=== PATIENT | female | born 2000 | race Two or more races ===

== ENCOUNTER 2024-07-30 11:46 | Emergency (ER) | payer MEDICAID, SELFPAY ==
[2024-07-30 13:03] VITALS: BP 149/95; PULSE 73; RESP 18; TEMP 37; O2SAT 100; BMI 25.3
--- NOTE | 2024-07-30 13:26 | XR_ITS ---
Examination: PA lateral chest 2 views Technique: Upright PA lateral chest 2 views Exam date and time: July 30, 2024 1337 hrs. Comparison January 31, 2024 Indications: Chest pain today. Findings: Normal heart size. Lungs are clear. The osseous structures are intact. Impression: No active disease.
--- NOTE | 2024-07-30 13:26 | XR_ITS ---
Examination: Abdomen sonogram, Limited Date and time of exam: July 30, 2024 1438 hrs. Indications: Right flank pain beginning 2 years ago, worse today Technique: Real-time castro scale transabdominal sonographic images of the upper abdomen obtained. Findings: Multiple small gallstones Gallbladder wall 0.5 cm with possible edema Common bile duct 0.4 cm Pancreatic head 1.8 cm Liver 13.8 cm fatty infiltration Normal hepatopedal portal venous flow Patent IVC Impression: Acute calculus cholecystitis pattern Consider MRCP follow-up
--- NOTE | 2024-07-30 13:26 | EKG_ITS ---
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
--- NOTE | 2024-07-30 13:30 | PD.EDRME ---
Rapid Medical Screening Exam RME Arrival date/time: 07/30/24 11:46 Chief Complaint: Abdominal Pain Time Seen by Provider: 07/30/24 13:08 Vital signs: Vital Signs Temperature 98.6 F 07/30/24 13:03 Pulse Rate 73 07/30/24 13:03 Respiratory Rate 18 07/30/24 13:03 Blood Pressure 149/95 H 07/30/24 13:03 Pulse Oximetry (%) 100 07/30/24 13:03 Oxygen Delivery Method Room Air 07/30/24 13:03 RME Narrative: 24-year-old female sent to hospital from work after having a syncopal episode at work. States she felt sharp epigastric pain and passed out from the pain. It is not the first time it happened. Was diagnosed with gallstones a few years ago. States was done nothing about them since. Of note did have fever 2 days ago. does not know why the fever happened has not been feeling sick other than her stomach.
[2024-07-30] MEDS: KETOROLAC INJ 60 MG/2 ML VIAL 30 MG IM (13:49)
[2024-07-30 14:30] LABS: Basophils % (Auto) 1 % (0-2.5); Eosinophils # (Auto) 0.1 Thou/mm3 (0.0-0.5); Eosinophils % (Auto) 1 % (0-10); Hematocrit 35.2 % (36.0-46.0); Hemoglobin 11.5 g/dL (12.0-16.0); Immature Granulocytes % (Auto) 0 % (0-0); Immature Granulocytes Auto 0.01 Thou/mm3 (0.00-0.00); Lymphocytes # (Auto) 2.4 Thou/mm3 (1.0-4.8); Lymphocytes % (Auto) 28 % (10-50); Mean Corpuscular HGB Conc 32.7 g/dl (31.0-37.0); Mean Corpuscular Hemoglobin 26.1 pg (25.0-35.0); Mean Corpuscular Volume 80 fL (80-100); Monocytes # (Auto) 0.7 Thou/mm3 (0.0-0.8); Monocytes % (Auto) 7 % (0-12); Neutrophils # (Auto) 5.6 Thou/mm3 (1.8-7.7); Neutrophils % (Auto) 63 % (37-80); Nucleated Red Blood Cell % 0 /100 WBC (0); Platelet Count 235 Thou/mm3 (140-440); RDW Standard Deviation 44.1 fL (36.4-46.3); White Blood Count 8.8 Thou/mm3 (3.6-11.0)
[2024-07-30 14:37] LABS: HCG Qualitative,Urine Negative
[2024-07-30 14:44] LABS: Amphetamine/Methamp Scrn,U Negative (Negative); Barbiturate Screen,Urine Negative (Negative); Benzodiazepines Screen,Urine Negative (Negative); Benzoylecgonine Screen, Ur Negative (Negative); Fentanyl Screen,Urine Negative (Negative); Opiate Screen,Urine Negative (Negative); THC Screen,Urine Negative (Negative)
[2024-07-30 14:50] LABS: Albumin, Serum 4.7 gm/dL (3.5-5.0); Albumin/Globulin Ratio 1.3 (1.2-2.2); Alkaline Phosphatase 99 U/L (46-116); Anion Gap 10 (7-16); Aspartate Amino Transferase 15 U/L (0-34); BUN/Creatinine Ratio 20 Ratio (12-20); Bilirubin,Total 0.4 mg/dL (0.3-1.2); Blood Urea Nitrogen 14 mg/dL (9-23); Calcium 11.1 mg/dL (8.3-10.6); Calcium (Corrected) 11.1 mg/dL (8.5-10.1); Carbon Dioxide 24.3 mMol/L (20.0-31.0); Chloride 104 mMol/L (98-107); Creatinine (Component) 0.7 mg/dL (0.6-1.3); Estimated Creatinine Clearance 108.9 mL/min (>60); Globulin 3.5 gm/dL (2.3-3.5); Glucose 85 mg/dL (74-106); Lipase 44 U/L (12-53); Osmolality,Calculated 275 (275-295); Sodium 138 mMol/L (136-145); Total Protein 8.2 gm/dL (5.7-8.2); eGFR > 60 See Note
[2024-07-30 15:00] LABS: Alanine Aminotransferase 9 U/L (10-49)
[2024-07-30 17:13] VITALS: BP 135/87; PULSE 65; RESP 18; TEMP 36.6; O2SAT 97
--- NOTE | 2024-07-30 18:54 | PD.EDABDPN ---
ED Abdominal Pain RME/HPI General Chief Complaint: Abdominal Pain Stated complaint: ABD PAIN RADIATING TO BACK W/ NEAR SYNCOPE AT WORK Time seen by provider: 07/30/24 13:08 Arrival date/time: 07/30/24 11:46 RME / HPI RME / HPI narrative: 24-year-old female sent to hospital from work after having a syncopal episode at work. States she felt sharp epigastric pain and passed out from the pain. It is not the first time it happened. Was diagnosed with gallstones a few years ago. States was done nothing about them since. Of note did have fever 2 days ago. does not know why the fever happened has not been feeling sick other than her stomach. This section includes all my notes and documentations, including HPI, PE, and ED course. Shoaib Calhoun MD HPI: 24-year-old female sent to hospital from work after having a syncopal episode at work. States she felt sharp epigastric pain and passed out from the pain. It is not the first time it happened. Was diagnosed with gallstones a few years ago. States was done nothing about them since. Of note did have fever 2 days ago. does not know why the fever happened has not been feeling sick other than her stomach. ROS: All negative except as documented in HPI. Physical Exam: General: Alert and oriented. No acute distress when remaining still. Eyes: Conjunctivae and lids clear. ENT: No nasal congestion. Neck: Supple. Heart: RRR. Lungs: No respiratory distress. Good air movement. No rhonchi, wheezing, rales. Abdomen: Soft with epigastric and RUQ tenderness. Normal bowel sounds. No distension. No rebound or guarding. Back: No CVA tenderness. Skin: Warm and dry. Neuro: Alert and oriented X 3. I reviewed all diagnostic test results. My interpretation of the chest x-ray is no acute findings. My review of the gallbladder US report is cholelithiasis. Blood tests and urine tests unremarkable. At this point, diagnoses include cholelithiasis. Recommended more outpatient care, including elective surgery. Based on my best medical judgment, made decision no further evaluation or treatment indicated at this time. Patient understands and agrees to the discharge instructions customized and printed, see below. Discharge Instructions from Dr. Calhoun: 1. After evaluation, your symptoms are due to gallstone(s).? You need gallbladder to help digest fatty foods. 2. So to prevent future attacks, avoid all fatty and oily and greasy and buttery and dairy foods.? This usually means take out and fast food restaurants. 3. Zofran for nausea/vomiting.? Tylenol codeine for severe pain.??Add Augmentin to prevent infection. 4. See a private doctor for recheck and further care. Ask for help seeing a general surgeon to discuss elective surgery. 5. Seek immediate medical care with intolerable pain, fever, or with any concerns. Shoaib Calhoun MD Related Data Home Medications ?Medication ?Instructions ?Recorded ?Confirmed paroxetine HCl 20 mg tablet 20 mg PO QDAY 03/06/21 08/03/21 loratadine 10 mg tablet 10 mg PO QDAY 08/03/21 08/03/21 prednisone 20 mg tablet 20 mg PO QDAY 08/03/21 08/08/21 sertraline 25 mg tablet (Zoloft) 25 mg PO QDAY PRN Anxiety 08/03/21 08/03/21 Previous Rx's ?Medication ?Instructions ?Recorded hzhoryvttq-rtkryzgimqisz-axcewoqs 1 cap PO Q6H PRN headache #20 caps 01/23/22 50 mg-300 mg-40 mg capsule (Fioricet) imwytdhktp-wcpviyratdpag-gfmcbqzm 1 cap PO Q6H PRN headache #30 caps 01/23/22 50 mg-300 mg-40 mg capsule (Fioricet) ondansetron 4 mg disintegrating 4 mg PO Q6H PRN nausea and 01/23/22 tablet vomiting #10 tabs ondansetron 4 mg disintegrating 4 mg PO Q6H PRN nausea and 01/23/22 tablet vomiting #10 tabs acetaminophen 300 mg-codeine 30 mg 2 tab PO Q8H PRN pain #20 tabs 07/30/24 tablet amoxicillin 875 mg-potassium 1 tab PO BID 3 days #6 tabs 07/30/24 clavulanate 125 mg tablet ondansetron 4 mg disintegrating 4 mg PO TID PRN nausea and 07/30/24 tablet vomiting 30 days #10 tabs Allergies Allergy/AdvReac Type Severity Reaction Status Date / Time No Known Allergies Allergy Verified 07/30/24 11:49 Course Quality Measures none Orders Category Date Time Status Bedside COVID-19 Antigen Test NOW Care 07/30/24 13:31 Active Bedside Influenza A&B Antigen Test NOW Care 07/30/24 13:31 Completed EKG (ED ONLY) *Do not use* NOW Care 07/30/24 13:26 Completed EKG (ED Only) Stat Exams 07/30/24 13:26 Draft US gall bladder Stat Exams 07/30/24 13:26 Completed XR chest 2V Stat Exams 07/30/24 13:26 Completed CBC Stat Lab 07/30/24 14:15 Completed CMP [Comprehensive Metabolic Panel] Stat Lab 07/30/24 14:15 Completed Drug Screen,Urine Stat Lab 07/30/24 14:13 Completed HCG Qualitative,Urine Stat Lab 07/30/24 14:10 Completed Lipase Stat Lab 07/30/24 14:15 Completed Ketorolac Inj [Toradol Inj] Med 07/30/24 13:27 Discontinued 30 mg IM X1 ONE Vital Signs Vital signs: Vital Signs Temperature 98.6 F 07/30/24 13:03 Pulse Rate 73 07/30/24 13:03 Respiratory Rate 18 07/30/24 13:03 Blood Pressure 149/95 H 07/30/24 13:03 Pulse Oximetry (%) 100 07/30/24 13:03 Oxygen Delivery Method Room Air 07/30/24 13:03 Abdominal Pain MDM Patient data External records reviewed:: [facility] previous records Clinical information provided by:: patient Social determinants that could affect healthcare access:: none Patient has the following chronic illnesses:: Cholelithiasis and asthma How is presenting disease/condition affected by chronic disease/condition?: exacerbated by Evaluation data The following diagnostics were reviewed and interpreted by me:: lab results and radiology exam(s) Lab and/or radiology exams considered but not ordered:: None Interpretation Summary: Cholelithiasis Medications / Prescriptions Medications or Prescriptions considered but not ordered:: None Medication administrations:: Medication Administration History Discontinued Medications Ketorolac Tromethamine (Ketorolac Inj 60 Mg/2 Ml Vial) 30 mg IM X1 ONE Stop: 07/30/24 13:28 Last Admin: 07/30/24 13:49 Dose: 30 mg Documented By: ARMANDO Toradol Consultations Consultation(s) initiated? (list below): No Diagnosis Differential diagnosis abdominal pain: abdominal pain, acute appendicitis, calculus of kidney, constipation, diverticulitis, endometriosis, gastroenteritis, pancreatitis, small bowel obstruction and other (Biliary colic) Most likely diagnosis given after review of the tests above:: Cholelithiasis Admission Indicated Admission indicated?: not indicated Explain why admission is indicated or not indicated:: There was no indication for admission. Admission Request Was there a request for admission?: No Disposition Plan Disposition Plan: Discharge Discharge Attestation Discharge Attestation: The patient and all family members were given an opportunity to ask questions and understood the discharge instructions. Discharge instructions specifically effects, indications for sooner follow up or return to the emergency department, and the expected course of current diagnosis. Patient condition: Stable Discharge Plan Plan Patient Disposition: HOME (Self Care) Prescriptions/Referrals Prescriptions/Med Rec: New acetaminophen-codeine 300-30 mg tablet 2 tab PO Q8H MDD 6 PRN (Reason: pain) Qty: 20 0RF ondansetron 4 mg tablet,disintegrating 4 mg PO TID PRN (Reason: nausea and vomiting) 30 Days Qty: 10 0RF amoxicillin-pot clavulanate 875-125 mg tablet 1 tab PO BID 3 Days Qty: 6 0RF No Action paroxetine HCl 20 mg tablet 20 mg PO QDAY prednisone 20 mg Tablet 20 mg PO QDAY sertraline [Zoloft] 25 mg Tablet 25 mg PO QDAY PRN (Reason: Anxiety) loratadine 10 mg Tablet 10 mg PO QDAY hsmnsajsqh-uxowhrvnpeffp-wobv [Fioricet] 50-300-40 mg capsule 1 cap PO Q6H PRN (Reason: headache) Qty: 30 0RF ondansetron 4 mg tablet,disintegrating 4 mg PO Q6H PRN (Reason: nausea and vomiting) Qty: 10 0RF ondansetron 4 mg tablet,disintegrating 4 mg PO Q6H PRN (Reason: nausea and vomiting) Qty: 10 0RF hefaeozbbe-kqmiprvwgetjk-gywf [Fioricet] 50-300-40 mg capsule 1 cap PO Q6H PRN (Reason: headache) Qty: 20 0RF Referrals: No Primary/Family,Physician [Primary Care Provider] - In 1 week Problem List Clinical Impression: Gallstones Patient/Caregiver Discharge Instructions Discharge Activity: activity as tolerated Education Materials: ED Gallstones with Biliary Colic Additional Instructions: Discharge Instructions from Dr. Calhoun: 1. After evaluation, your symptoms are due to gallstone(s).? You need gallbladder to help digest fatty foods. 2. So to prevent future attacks, avoid all fatty and oily and greasy and buttery and dairy foods.? This usually means take out and fast food restaurants. 3. Zofran for nausea/vomiting.? Tylenol codeine for severe pain.??Add Augmentin to prevent infection. 4. See a private doctor on for recheck and further care. Ask for help seeing a general surgeon to discuss elective surgery. 5. Seek immediate medical care with intolerable pain, fever, or with any concerns. Print Language: Grenadian Stand Alone Forms: [employer] Award Info., Patient Portal Info Letter
== END 2024-07-30 19:12 | disposition home or self-care (01) ==
PROVIDERS: Physician Assistant; Emergency Provider Emergency Medicine
DX: K80.20 Calculus of gallbladder without cholecystitis without obstruction (principal); R07.9 Chest pain, unspecified
CPT/HCPCS: 36415; 71046; 76705; 80053; 80307; 81025; 83690; 85025; 87400; 87811; 93005; 96372; 99284; J1885

== ENCOUNTER 2024-10-28 00:10 | Inpatient (IN) | payer MEDICAID, SELFPAY ==
--- NOTE | 2024-10-28 | XR_ITS ---
MRI abdomen, without contrast. MRCP Date and time of exam: October 28, 2024, 0956 hrs. Indications: Vomiting abdominal pain 2 years worse today, gallbladder sonogram October 28, 2024 enlarged common bile duct 7 mm Technique: Multiple axial and coronal images of the abdomen have been obtained with the Siemens 1.5T MRI scanner. Images obtained included T1 weighted transverse images, T2-weighted transverse images, T2-weighted transverse images fat-suppressed, T2 weighted haste fat suppressed transverse images, T1 weighted images, in and out of phase images, T2-weighted coronal images, breath hold, T2 weighted haze coronal images as well as T2 weighted coronal thick slab images, MRCP. Findings: No focal liver lesions Contracted gallbladder with gallstones Minimal edema surrounding the gallbladder Axial image 18 is suspicious for 3 mm stone in the distal common bile duct No peripancreatic edema No hydronephrosis No ascites Impression: Cholelithiasis, minimal edema gallbladder wall, clinical correlation advised Suspicious for 3 mm stone in the distal common bile duct, recommend ERCP follow-up
[2024-10-28 00:10] VITALS: BMI 25.4
--- NOTE | 2024-10-28 00:21 | EDNOTE_ITS ---
ED Abdominal Pain RME/HPI General Chief Complaint: Abdominal Pain Stated complaint: RUQ PAIN Time seen by provider: 10/28/24 00:28 Arrival date/time: 10/28/24 00:10 RME / HPI RME / HPI narrative: This section includes all my notes and documentations, including HPI, PE, and ED course. Shoaib Calhoun MD HPI: 24yo female with history of gallstones here with severe epigastric and RUQ pain for over a month, severe in the past couple days. With nausea and vomiting and anorexia. No fever, UTI symptoms. Requests removal of her gallbladder. No other complaints. ROS: All negative except as documented in HPI. Physical Exam: General: Alert and oriented. In severe pain. Eyes: Conjunctivae and lids clear. ENT: No nasal congestion. Neck: Supple. Heart: RRR. Lungs: No respiratory distress. Good air movement. No rhonchi, wheezing, rales. Abdomen: Soft with severe epigastric and RUQ tenderness. Decreased bowel sounds. No distension. No rebound or guarding. Back: No CVA tenderness. Skin: Warm and dry. Neuro: Alert and oriented X 3. I reviewed all diagnostic test results. My review of the gallbladder US report is cholelithiasis. Blood tests remarkable for Potassium 3.1. At this point, diagnoses include cholecystitis and intractable pain and vomiting. Treatment here included IV fluid, Toradol, Morphine, Zofran, and Zosyn. No significant improvement noted. I discussed the case with our general surgeon, Dr. Hernandez. About the presentation and exam and diagnostics and treatments here. And need of further care in the hospital. Will accept the patient. Shoaib Calhoun MD Related Data Home Medications ?Medication ?Instructions ?Recorded ?Confirmed paroxetine HCl 20 mg tablet 20 mg PO QDAY 03/06/2101/16 loratadine 10 mg tablet 10 mg PO QDAY 08/03/2108/03 prednisone 20 mg tablet 20 mg PO QDAY 08/03/2108/08 sertraline 25 mg tablet (Zoloft) 25 mg PO QDAY PRN Anx iety 08/03/21 08/03/21 Previous Rx's ?Medication ?Instructions ?Recorded wlcsurohpr-szkpozofvtjtj-bsoyzxwa 1 cap PO Q6H PRN axel meneseshe #20 caps 09/29/22 50 mg-300 mg-40 mg capsule (Fioricet) bfxqnxmawm-incxeftylpgfy-msnggiok 1 cap PO Q6H PRN hea dache #30 caps 01/23/22 50 mg-300 mg-40 mg capsule (Fioricet) ondansetron 4 mg disintegrating 4 mg PO Q6H PRN nausea and 01/23/22 tablet vomiting #10 tabs ondansetron 4 mg disintegrating 4 mg PO Q6H PRN nausea and 01/23/22 tablet vomiting #10 tabs acetaminophen 300 mg-codeine 30 mg 2 tab PO Q8H PRN pa in #20 tabs 07/30/24 tablet Allergies Allergy/AdvReac Type Severity Reaction Status Date / Time No Known Allergies Allergy Verified 07/30/24 11:49 Review of Systems Review of Systems Systems Reviewed: All systems reviewed, normal except as documented Past Medical History Past Medical History CARDIAC: Negative Cardiac Disorders or Congestive Heart Failure RESPIRATORY: Positive Asthma; Negative Chronic Obstructive Pulmonary Disease (COPD) GENITOURINARY: Negative Renal Disease ENDOCRINE: Negative Diabetes Mellitus Type 1 or Diabetes Mellitus Type 2 HEMATOLOGIC: Positive Anemia and Sickle Cell Disease Family History FAMILY HISTORY: Positive Family Cancer Social History SMOKING STATUS: Never smoker SUBSTANCE USE: does not use ED Exam Narrative Physical exam: As noted in HPI. Course Quality Measures none Orders Category Date Time Status Admit to Inpatient Status Routine Admission 10/28/24 00:51 Active COVID-19 Screening Questionnaire NOW Care 10/28/24 00:46 Completed COVID-19 Screening Questionnaire NOW Care 10/28/24 00:51 Completed Decision to Admit X1 Care 10/28/24 00:46 Active Decision to Admit X1 Care 10/28/24 00:50 Completed NPO NOW Care 10/28/24 00:47 Active NPO NOW Care 10/28/24 00:55 Active Saline [Insert IV] NOW Care 10/28/24 00:22 Active Consult to General Surgery Stat Cons 10/28/24 00:47 Ordered Diet NPO (NOW) Diet 10/28/24 00:47 Completed Diet NPO (NOW) Diet 10/28/24 00:55 Active US gall bladder Stat Exams 10/28/24 00:45 Taken Amylase Stat Lab 10/28/24 00:41 Completed Bilirubin,Direct Stat Lab 10/28/24 00:41 Completed Blood Culture (Lab) Stat Lab 10/28/24 01:12 Received CBC Stat Lab 10/28/24 00:41 Completed CMP [Comprehensive Metabolic Panel] Stat Lab 10/28/24 00:41 Completed HCG,Qualitative Serum Stat Lab 10/28/24 00:41 Completed Lipase Stat Lab 10/28/24 00:41 Completed Magnesium Stat Lab 10/28/24 00:41 Completed PT [Prothrombin Time with INR] Stat Lab 10/28/24 00:41 Completed PTT [Partial Thromboplastin Time] Stat Lab 10/28/24 00:41 Completed UA, C/S IF [Urinalysis, C/S if Indicated] Stat Lab 10/28/24 00:23 Ordered Ketorolac Inj [Toradol Inj] Med 10/28/24 00:22 Discontinued 30 mg IVP X1 ONE Morphine Inj Med 10/28/24 00:50 Active 4 mg IVP Q4H PRN Morphine Inj Med 10/28/24 00:22 Discontinued 4 mg IVP X1 ONE Ondansetron Inj [Zofran Inj] Med 10/28/24 00:50 Active 4 mg IVP Q4H PRN Ondansetron Inj [Zofran Inj] Med 10/28/24 00:22 Discontinued 4 mg IVP X1 ONE Piper/Tazo 3.375 gm Premix [Zosyn] Med 10/28/24 00:45 Discontinued 3.375 gm in 50 ml IV X1 Sodium Chloride 0.9% 1000 ml [Ns] 1,000 ml Med 10/28/24 00:55 Active IV 100 mls/hr Sodium Chloride 0.9% 1000 ml [Ns] 1,000 ml Med 10/28/24 00:22 Discontinued IV 999 mls/hr Code Status Routine Oth 10/28/24 00:50 Ordered Vital Signs Vital signs: Vital Signs Temperature 97.6 F 10/28/24 00:22 Pulse Rate 101 H 10/28/24 00:22 Respiratory Rate 18 10/28/24 00:22 Blood Pressure 132/86 H 10/28/24 00:22 Pulse Oximetry (%) 99 10/28/24 00:22 Oxygen Delivery Method Room Air 10/28/24 00:22 Abdominal Pain MDM MDM Narrative MDM Narrative:: 24yo female with a history of gallstones presents to the ED for a chief complaint of significant epigastric and RUQ pain that started today. She has had nausea and vomiting. No fever, chills, UTI symptoms or any other associated symptoms. No other complaints reported. Patient data External records reviewed:: [facility] previous records (Per chart review, patient was seen here on 07/30/24 for gallstones.) Clinical information provided by:: patient Social determinants that could affect healthcare access:: none Patient has the following chronic illnesses:: sickle cell disease, asthma How is presenting disease/condition affected by chronic disease/condition?: uneffected by Evaluation data The following diagnostics were reviewed and interpreted by me:: lab results Lab and/or radiology exams considered but not ordered:: none Interpretation Summary: I reviewed all diagnostic test results. My review of the gallbladder US report is cholelithiasis. Blood tests remarkable for Potassium 3.1. Medications / Prescriptions Medications or Prescriptions considered but not ordered:: none Medication administrations:: Medication Administration History Sodium Chloride (Ns) 1,000 mls @ 100 mls/hr IV .Q10H ONE Stop: 10/28/24 10:54 Last Admin: 10/28/24 01:30 Dose: 100 mls/hr Documented By: BREANA Morphine Sulfate (Morphine Sulf Inj 10 Mg/Ml Vial) 4 mg IVP Q4H PRN PRN Reason: PAIN SCALE 4-10(Mod-Sev Ondansetron HCl (Ondansetron Inj 2 Mg/Ml Inj 2 Ml) 4 mg IVP Q4H PRN; Protocol PRN Reason: ABDOMINAL CRAMPING Stop: 11/27/24 00:49 Discontinued Medications Sodium Chloride (Ns) 1,000 mls @ 999 mls/hr IV .Q1H1M ONE Stop: 10/28/24 01:22 Last Infusion: 10/28/24 01:41 Dose: Infused Documented By: Admin: 10/28/24 00:35 Dose: 999 mls/hr Documented By: NARA Piperacillin/Tazobactam/Dextrose (Zosyn) 3.375 gm in 50 mls @ 100 mls/hr IV X1 ONE Stop: 10/28/24 01:14 Last Admin: 10/28/24 01:31 Dose: 100 mls/hr Documented By: BREANA Ketorolac Tromethamine (Ketorolac Inj 30 Mg/Ml Vial) 30 mg IVP X1 ONE Stop: 10/28/24 00:23 Last Admin: 10/28/24 00:40 Dose: 30 mg Documented By: NARA Morphine Sulfate (Morphine Sulf Inj 10 Mg/Ml Vial) 4 mg IVP X1 ONE Stop: 10/28/24 00:23 Last Admin: 10/28/24 00:40 Dose: 4 mg Documented By: NARA Ondansetron HCl (Ondansetron Inj 2 Mg/Ml Inj 2 Ml) 4 mg IVP X1 ONE; Protocol Stop: 10/28/24 00:23 Last Admin: 10/28/24 00:40 Dose: 4 mg Documented By: NARA Potassium Chloride (Potassium Chloride 10% 20 Meq/15 Ml Udc) 40 meq PO X1 ONE Stop: 10/28/24 01:57 Last Admin: 10/28/24 02:06 Dose: 40 meq Documented By: NARA Toradol, Morphine, Zofran, NS, Zosyn. Consultations Consultation(s) initiated? (list below): Yes Consultation #1 (Physician, Specialty, Details): I discussed the case with our general surgeon. About the presentation and exam and diagnostics and treatments here. And need of further care in the hospital. Will accept the patient. Diagnosis Differential diagnosis abdominal pain: acute appendicitis, calculus of kidney, constipation, diverticulitis, endometriosis, gastroenteritis, pancreatitis, small bowel obstruction and other (Biliary colic) Most likely diagnosis given after review of the tests above:: Cholecystitis with intractable pain and vomiting. Admission Indicated Admission indicated?: indicated Explain why admission is indicated or not indicated:: Cholecystitis with intractable pain and vomiting. Admission Request Was there a request for admission?: Yes Admission Attestation Admission request attestation: Discussed case with Dr. Hernandez regarding admission. Discussed patients ED course, exam findings, labs, and radiology results. Agrees to accept the patient for admission. Disposition Plan Disposition Plan: Admit Discharge Plan Plan Patient Disposition: Admit Acute Care w/in Hospital Problem List Clinical Impression: Cholecystitis
[2024-10-28 00:22] VITALS: BP 132/86; PULSE 101; RESP 18; TEMP 36.4; O2SAT 99
[2024-10-28] MEDS: SODIUM CHLORIDE 0.9% 1000 ML 1,000 ML 999 ML IV (00:35)
[2024-10-28] MEDS: ONDANSETRON INJ 2 MG/ML INJ 2 ML 4 MG IVP (00:40)
[2024-10-28] MEDS: MORPHINE SULF INJ 10 MG/ML VIAL 4 MG IVP (00:40)
[2024-10-28] MEDS: KETOROLAC INJ 30 MG/ML VIAL IVP (00:40)
--- NOTE | 2024-10-28 00:45 | XR_ITS ---
Examination: Abdomen sonogram, Limited Date and time of exam: October 28, 2024, 0218 hours INDICATIONS: Right upper abdominal pain and vomiting today Technique: Real-time castro scale transabdominal sonographic images of the upper abdomen obtained. Findings: Multiple gallstones Gallbladder wall 0.37 cm no edema Common bile duct 0.72 cm no definite stones Pancreas obscured by bowel gas Liver 14 cm no focal liver lesions Normal hepatopedal portal venous flow Patent IVC IMPRESSION: Cholelithiasis Abnormal enlargement common bile duct 0.72 cm, consider MRCP follow-up to exclude common bile duct stones
[2024-10-28 01:17] LABS: Basophils # (Auto) 0.0 Thou/mm3 (0.0-0.2); Basophils % (Auto) 1 % (0-2.5); Eosinophils # (Auto) 0.1 Thou/mm3 (0.0-0.5); Eosinophils % (Auto) 1 % (0-10); Hematocrit 31.7 % (36.0-46.0); Hemoglobin 10.4 g/dL (12.0-16.0); Immature Granulocytes Auto 0.02 Thou/mm3 (0.00-0.00); Lymphocytes # (Auto) 1.4 Thou/mm3 (1.0-4.8); Lymphocytes % (Auto) 16 % (10-50); Mean Corpuscular HGB Conc 32.8 g/dl (31.0-37.0); Mean Corpuscular Hemoglobin 26.3 pg (25.0-35.0); Mean Corpuscular Volume 80 fL (80-100); Monocytes # (Auto) 0.5 Thou/mm3 (0.0-0.8); Monocytes % (Auto) 6 % (0-12); Neutrophils # (Auto) 6.7 Thou/mm3 (1.8-7.7); Neutrophils % (Auto) 76 % (37-80); Nucleated Red Blood Cell # 0.00 Thou/mm3 (0.00-0.00); Nucleated Red Blood Cell % 0 /100 WBC (0); Platelet Count 258 Thou/mm3 (140-440); RDW Standard Deviation 45.0 fL (36.4-46.3); Red Blood Count 3.96 Miln/mm3 (4.00-5.20); White Blood Count 8.8 Thou/mm3 (3.6-11.0)
[2024-10-28] MEDS: SODIUM CHLORIDE 0.9% 1000 ML 1,000 ML 100 ML IV (01:30)
[2024-10-28] MEDS: PIPER/TAZO 3.375 GM PREMIX 3.375 GM/50 ML BAG IV (01:31)
[2024-10-28 01:35] LABS: INR 1.0 (0.9-1.3); Partial Thromboplastin Time 25.0 Seconds (22.0-36.0); Prothrombin Time 11.2 Seconds (9.0-12.2)
[2024-10-28 01:39] LABS: Alanine Aminotransferase 479 U/L (10-49); Albumin, Serum 4.5 gm/dL (3.5-5.0); Albumin/Globulin Ratio 1.6 (1.2-2.2); Alkaline Phosphatase 153 U/L (46-116); Amylase 80 U/L (30-118); Anion Gap 10 (7-16); Aspartate Amino Transferase 180 U/L (0-34); BUN/Creatinine Ratio 7 Ratio (12-20); Bilirubin,Direct 0.7 mg/dL (0.0-0.3); Bilirubin,Total 1.4 mg/dL (0.3-1.2); Blood Urea Nitrogen 5 mg/dL (9-23); Calcium 10.4 mg/dL (8.3-10.6); Calcium (Corrected) 10.4 mg/dL (8.5-10.1); Carbon Dioxide 25.9 mMol/L (20.0-31.0); Chloride 105 mMol/L (98-107); Creatinine (Component) 0.7 mg/dL (0.6-1.3); Estimated Creatinine Clearance 104.9 mL/min (>60); Globulin 2.9 gm/dL (2.3-3.5); Glucose 97 mg/dL (74-106); Lipase 47 U/L (12-53); Magnesium 2.1 mg/dL (1.6-2.6); Osmolality,Calculated 278 (275-295); Potassium 3.1 mMol/L (3.4-5.1); Sodium 141 mMol/L (136-145); Total Protein 7.4 gm/dL (5.7-8.2); eGFR > 60 See Note
[2024-10-28 01:50] LABS: HCG,Qualitative Serum Negative
[2024-10-28] MEDS: POTASSIUM CHLORIDE 10% 20 MEQ/15 ML UDC 40 MEQ PO (02:06)
[2024-10-28 02:10] VITALS: BP 127/84; PULSE 100; RESP 18; TEMP 36.3; O2SAT 99
--- NOTE | 2024-10-28 02:59 | PRELIM_ITS ---
Gallbladder ultrasound. October 28, 2024 0218 hours Clinical history: RUQ tenderness Technique: Grayscale and color flow images of the abdomen are provided. Comparison: No prior study is available for comparison. Findings: The visualised liver is normal in echogenicity without mass or ductal dilatation. Multiple calculi are noted within the gallbladder, which is enlarged (measuring approximately 8.3 ?? 3.5 ?? 4.7 cm), with gallbladder wall thickening (up to 0.4 cm) but no pericholecystic fluid seen. The common bile duct is dilated, measuring 7.2 mm. No free fluid is demonstrated on the submitted images. The pancreas is not well visualised due to overlying bowel gas. Impression: Cholelithiasis with gallbladder wall thickening, findings suspicious for evolving or subacute cholecystitis. Dilated common bile duct. Recommend clinical correlation and further evaluation with MRCP, if clinically indicated. Report Electronically Signed By: Butch Jauregui 10/28/2024 2:58:38 AM [EST]
[2024-10-28 03:01] LABS: Collection Type, Urine Clean Catch
[2024-10-28 03:30] LABS: Bacteria,Urine 1+; Bilirubin,Urine Negative (Negative); Blood,Urine 3+ (Negative); Calcium Oxalate Crystals,Urine Rare; Clarity,Urine Turbid (Clear/Hazy); Color,Urine Yellow (Lt Yel-Yel); Glucose, Urine Negative (Negative); Ketones,Urine 1+ (Negative); Leukocyte Esterase,Urine Positive (Negative); Nitrite,Urine Negative (Negative); PH,Urine 6.0 (5.0-7.0); Protein,Urine Trace (Neg - Trace); RBC,Urine 55 /hpf (0-3); Specific Gravity,Urine 1.012 (1.001-1.035); Squamous Epithelial Cell,Urine 3 /hpf (0-5); Urobilinogen,Urine Negative mg/dL (0.0-1.0); WBC,Urine 18 /hpf (0-5)
[2024-10-28 03:31] LABS: Culture Indicated,Urine Yes
[2024-10-28 04:00] VITALS: BP 118/70; PULSE 57; RESP 12; TEMP 37; O2SAT 99
[2024-10-28 05:59] VITALS: BP 98/56; PULSE 51; RESP 14; TEMP 36.9; O2SAT 98
[2024-10-28 07:25] VITALS: BP 105/71; PULSE 51; RESP 13; TEMP 36.8; O2SAT 100
--- NOTE | 2024-10-28 10:35 | PC.NURSE ---
SPOKE WITH DR MOCK REGARDING MRI RESULTS. MD REQUEST TO REPEAT LIVER ENZYMES AND IF THEY REMAIN THE SAME OR BETTER HE WILL TAKE HER TO OR IF THEY ARE WORSE PT WILL NEED TO BE TRANSFERRED FOR ERCP.
[2024-10-28 11:00] VITALS: BP 108/67; PULSE 61; RESP 15; TEMP 36.7; O2SAT 100
[2024-10-28 11:27] LABS: Alanine Aminotransferase 436 U/L (10-49); Albumin, Serum 3.8 gm/dL (3.5-5.0); Alkaline Phosphatase 139 U/L (46-116); Aspartate Amino Transferase 206 U/L (0-34); Bilirubin,Direct 0.4 mg/dL (0.0-0.3); Bilirubin,Total 0.9 mg/dL (0.3-1.2); Total Protein 6.4 gm/dL (5.7-8.2)
--- NOTE | 2024-10-28 12:42 | ESHP_ITS ---
HPI Date of Admission 10/28/24 01:14 Chief Complaint Chief Complaint: The patient is admitted with a diagnosis of cholelithiasis HPI History of present was revealed that the patient has been having recurrent upper abdominal pain for the past 2 years. She has been to the emergency room twice in the past and was told that she has gallstones but she never got to see a surgeon to schedule surgery. Yesterday she started having abdominal pain over the right upper quadrant associated with vomiting 5-6 times. She also had a diarrhea. Patient works as a biomedical instrument technician in [employer] She came to the emergency room at 11:00 and was admitted with a diagnosis of cholelithiasis. However the liver enzymes showed but they were elevated suggesting of a stone in the common bile duct. Patient denies any other major medical problems. Past Medical History Past Medical History CARDIAC: Negative Cardiac Disorders or Congestive Heart Failure RESPIRATORY: Positive Asthma; Negative Respiratory Disorders or Chronic Obstructive Pulmonary Disease (COPD) GASTROINTESTINAL: Positive Gall Bladder Disease (GALLSTONES) GENITOURINARY: Negative Renal Disease ENDOCRINE: Negative Diabetes Mellitus Type 1 or Diabetes Mellitus Type 2 HEMATOLOGIC: Positive Anemia and Sickle Cell Disease Family History FAMILY HISTORY: Positive Family Cancer Social History SMOKING STATUS: Never smoker SUBSTANCE USE: does not use Meds Home Medications and Allergies Home Medications ?Medication ?Instructions ?Recorded ?Confirmed ?Type paroxetine HCl 20 mg tablet 20 mg PO QDAY 03/06/2101/16 History loratadine 10 mg tablet 10 mg PO QDAY 08/03/2108/03 History prednisone 20 mg tablet 20 mg PO QDAY 08/03/2108/08 History sertraline 25 mg tablet (Zoloft) 25 mg PO QDAY PRN Anx iety 08/03/21 08/03/21 History Allergies Allergy/AdvReac Type Severity Reaction Status Date / Time No Known Allergies Allergy Verified 07/30/24 11:49 Exam Vital Signs Temp Pulse Resp BP Pulse Ox O2 Del Method 98.0 F 61 15 108/67 100 Room Air 10/28/24 11:00 10/28/24 11:00 10/28/24 11:00 10/28/24 11:00 10/28/24 11:10/28/24 11:00 Narrative Exam Physical examination revealed a thin built female who speaks good Macedonian she is 5 foot 1 inch tall weighing 135 pounds with BMI of 25. Her vital signs are normal Routine Respiratory Exam Comments: Good breath sounds Routine Cardiovascular Exam Comments: Sinus rhythm Routine Abdominal Exam Comments: Abdominal examination showed very minimal tenderness over the right upper quadrant. When I saw her this morning her pain has abated Results Results: Laboratory Laboratory Narrative: Patient's laboratory workup showed elevated transaminases with bilirubin of 1.4 and AST of 180 and ALT of 479 with alkaline phosphatase of 152. Results: Imaging Imaging narrative: Ultrasound showed multiple small stones with dilated common bile duct which was 7.2 cm in diameter MRCP was ordered which showed possible common bile duct stone 3 mm in size in the distal portion Assessment & Plan Additional Assessment Additional comments: Impression: Cholelithiasis with common bile duct Plan Plan: Will arrange for ERCP but the service is not available over this long weekend. Patient will therefore be referred outside for the gastroenterology service. This was explained to the patient and she is agreeable. Quality Measures Quality Measures none
--- NOTE | 2024-10-28 13:14 | PC.CC ---
Addendum entered by Marifer Richter RN 10/28/24 15:11: 1410: Called [facility] to inform them to cancel transfer request d/t pt signing out AMA. 1408: Received call from CARA Bush stating pt is signing out AMA. 1358: Spoke to CARA Bush, update provided. 1351: Spoke to Dr. Lunsford, informed him about the barrier of having presumptive medi-darrell may cause a delay in a transfer. He stated to keep trying and he will update the patient. 1334: spoke to Natalya at [facility], she state that an insurance auth is required before they can review patient. Original Note: 1311: Called , spoke to Morales. She stated she will have a nurse review and call me back. 1242: sent clinicals to [facility] and [facility]'s. 1210: Received call from CARA Wilder. Dr. Lunsford requesting a transfer for GI for ERCP.
--- NOTE | 2024-10-28 17:39 | ESPR_ITS ---
Documentation for date of: 10/28/24 Subjective Subjective Brief History: History of present was revealed that the patient has been having recurrent upper abdominal pain for the past 2 years. She has been to the emergency room twice in the past and was told that she has gallstones but she never got to see a surgeon to schedule surgery. Yesterday she started having abdominal pain over the right upper quadrant associated with vomiting 5-6 times. She also had a diarrhea. 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 She came to the emergency room at 11:00 and was admitted with a diagnosis of cholelithiasis. However the liver enzymes showed but they were elevated suggesting of a stone in the common bile duct. Patient denies any other major medical problems. Narrative: Attempts were made to transfer the patient to another hospital for ERCP due to the common bile duct stone seen on the MRCP. Unfortunately it was not possible to transfer in a timely manner and will while we are waiting the patient signed AGAINST MEDICAL ADVICE. Exam Vital Signs Temp Pulse Resp BP Pulse Ox O2 Del Method 98.0 F 61 15 108/67 100 Room Air 10/28/24 11:10/28/24 11:10/28/24 11:10/28/24 11:00 10/28/24 11:10/28/24 11:00
== END 2024-10-28 14:19 | disposition left against medical advice (07) ==
LOC: SERX 00:47 → SERHOLD 01:16
PROVIDERS: Admitting Provider Surgery; Emergency Provider Emergency Medicine; Visit Provider Surgery
DX: K80.60 Calculus of gallbladder and bile duct with cholecystitis, unspecified, without obstruction (principal); J45.909 Unspecified asthma, uncomplicated; D57.1 Sickle-cell disease without crisis; Z79.899 Other long term (current) drug therapy; Z53.29 Procedure and treatment not carried out because of patient's decision for other reasons
CPT/HCPCS: 36415; 76705; 80053; 80076; 81001; 82150; 82248; 83690; 83735; 84703; 85025; 85610; 85730; 87040; 87086; 96361; 96365; 96375; 99285; J1885; J2270; J2405; J2543; J7030; S8037; 74181; A9270

== ENCOUNTER 2024-12-13 03:02 | Emergency (ER) | payer MEDICAID, SELFPAY ==
[2024-12-13 03:04] VITALS: BMI 24.7
--- NOTE | 2024-12-13 03:24 | PD.EDWOUND ---
ED Wound/Laceration-RME/HPI General Chief Complaint: Suicidal Stated Complaint: INTENTIONAL LARG LAC L FA Time Seen by Provider: 12/13/24 03:09 Arrival date/time: 12/13/24 03:02 RME / HPI RME / HPI narrative: See [facility] for HPI documentation. Related Data Home Medications ?Medication ?Instructions ?Recorded ?Confirmed paroxetine HCl 20 mg tablet 20 mg PO QDAY 03/06/21 08/03/21 loratadine 10 mg tablet 10 mg PO QDAY 08/03/21 08/03/21 prednisone 20 mg tablet 20 mg PO QDAY 08/03/21 08/08/21 sertraline 25 mg tablet (Zoloft) 25 mg PO QDAY PRN Anxiety 08/03/21 08/03/21 Previous Rx's ?Medication ?Instructions ?Recorded [id number]-nedywkwgqczew-itmalwgq 1 cap PO Q6H PRN headache #20 caps 01/23/22 50 mg-300 mg-40 mg capsule (Fioricet) uqzvvdarbv-raqnoiubbxzsf-gmelgxyv 1 cap PO Q6H PRN headache #30 caps 01/23/22 50 mg-300 mg-40 mg capsule (Fioricet) ondansetron 4 mg disintegrating 4 mg PO Q6H PRN nausea and 01/23/22 tablet vomiting #10 tabs ondansetron 4 mg disintegrating 4 mg PO Q6H PRN nausea and 01/23/22 tablet vomiting #10 tabs acetaminophen 300 mg-codeine 30 mg 2 tab PO Q8H PRN pain #20 tabs 07/30/24 tablet Allergies Allergy/AdvReac Type Severity Reaction Status Date / Time No Known Allergies Allergy Verified 12/13/24 03:09 Review of Systems Review of Systems Systems Reviewed: All systems reviewed, normal except as documented Past Medical History Past Medical History CARDIAC: Negative Cardiac Disorders or Congestive Heart Failure RESPIRATORY: Positive Asthma; Negative Chronic Obstructive Pulmonary Disease (COPD) GASTROINTESTINAL: Positive Gall Bladder Disease (GALLSTONES) GENITOURINARY: Negative Renal Disease ENDOCRINE: Negative Diabetes Mellitus Type 1 or Diabetes Mellitus Type 2 HEMATOLOGIC: Positive Anemia and Sickle Cell Disease Family History FAMILY HISTORY: Positive Family Cancer Social History SMOKING STATUS: Never smoker SUBSTANCE USE: does not use ED Exam Narrative Physical exam: See [facility] for physical exam documentation. Course Quality Measures none Orders Category Date Time Status 1799 Psychiatric Hold NOW Care 12/13/24 03:30 Ordered Wound Care [Wound Care] NOW Care 12/13/24 03:26 Active Referral Psych Eval Stat Cons 12/13/24 03:25 Active Acetaminophen Stat Lab 12/13/24 03:26 Ordered Alcohol, Blood Medical Stat Lab 12/13/24 03:26 Ordered Bilirubin,Direct Stat Lab 12/13/24 03:26 Ordered CBC Stat Lab 12/13/24 03:27 Ordered CMP [Comprehensive Metabolic Panel] Stat Lab 12/13/24 03:26 Ordered Drug Screen,Urine Stat Lab 12/13/24 03:33 Received HCG,Qualitative Serum Stat Lab 12/13/24 03:26 Ordered Magnesium Stat Lab 12/13/24 03:26 Ordered TSH [Thyroid Stimulating Hormone] Stat Lab 12/13/24 03:26 Ordered Acetaminophen Tab [Tylenol Tab] Med 12/13/24 04:52 Discontinued 650 mg PO X1 ONE Amoxicillin/Pot Clav 875 [Augmentin 875] Med 12/13/24 03:25 Discontinued 1 tab PO X1 ONE Bacitracin Oint pkt Med 12/13/24 03:25 Discontinued 1 gm TOP X1 ONE Ibuprofen Tab [Motrin Tab] Med 12/13/24 04:52 Discontinued 400 mg PO X1 ONE Lidocaine 1% 20 ml [Xylocaine 1% 20 ML] Med 12/13/24 03:25 Discontinued 20 ml INFL X1 ONE TET,DIP/PERT AC (Adult)-Tdap [Boostrix Adult (Tdap) Med 12/13/24 03:25 Discontinued Vacc] 0.5 ml IMI .ONCE ONE Vital Signs Vital signs: Vital Signs Temperature 99.4 F 12/13/24 03:45 Pulse Rate 78 12/13/24 03:45 Respiratory Rate 18 12/13/24 03:45 Blood Pressure 159/100 H 12/13/24 03:45 Pulse Oximetry (%) 99 12/13/24 03:45 Oxygen Delivery Method Room Air 12/13/24 03:45 PROCEDURES: Laceration Laceration 1: Site: upper extremity (forearm) Side (If applicable): left Size (cm): 8.5 Description: linear Depth: involves muscle layer Local Anesthetic: lidocaine 1% Amount of anesthesia used (mL): 20 Pre-repair: wound explored, irrigated extensively, deep structures intact and wound margins revised Skin layer closed with: vicryl Suture size (cm): 3-0 Number of sutures: 11 Technique: simple, interrupted Subcutaneous layer closed with: vicryl Size: 4-0 Number of sutures: 5 Technique: simple, interrupted Wound / Laceration MDM Narrative MDM Narrative:: This section includes all my notes and documentations, including HPI, PE, and ED course. Shoaib Calhoun MD HPI: 24yo female here after cutting her left forearm. Reports getting mad and used eyebrow razor. Reports large open wound with bleeding. Can move and feel her fingers normally. No other injury. Denies thoughts of hurting herself or others. No hallucinations. Denies history of any psychiatric diagnoses. No other complaints. ROS: All negative except as documented in HPI. Physical Exam: General: Alert and oriented. Eyes: Conjunctivae and lids clear. ENT: No nasal congestion. Neck: Supple. Heart: RRR. Lungs: No respiratory distress. Good air movement. No rhonchi, wheezing, rales. Abdomen: Soft and nontender. Skin: Warm and dry. Neuro: Alert and oriented X 3. Left Forearm: In the middle aspect, there is 8.5 cm full-skin thickness laceration gaping open with active bleeding. Distally, no NVT injury. Patient placed on 1799 hold. Treatment here included: Laceration repair (see procedure note) Tdap Augmentin Pending evaluation by our ED [employer] in the morning. Urine and blood tests pending. At 6 AM on 12/13/2024, the care of the patient was transferred to Dr. Schofield. Shoaib Calhoun MD Patient data External records reviewed:: [facility] previous records (Per chart review, patient has no relevant previous ED visits.) Clinical information provided by:: patient Social determinants that could affect healthcare access:: none Patient has the following chronic illnesses:: none How is presenting disease/condition affected by chronic disease/condition?: no chronic disease Evaluation data The following diagnostics were reviewed and interpreted by me:: lab results Lab and/or radiology exams considered but not ordered:: none Interpretation Summary: Urine and blood tests pending. Medications / Prescriptions Medications or Prescriptions considered but not ordered:: none Medication administrations:: Medication Administration History Discontinued Medications Acetaminophen (Acetaminophen 325 Mg Tablet) 650 mg PO X1 ONE Stop: 12/13/24 04:53 Amoxicillin/Clavulanate Potassium (Amoxicillin/Pot Clav 875 Tablet) 1 tab PO X1 ONE Stop: 12/13/24 03:26 Last Admin: 12/13/24 04:00 Dose: 1 tab Documented By: LIZBETH Bacitracin (Bacitracin Oint 1 Gm Packet) 1 gm TOP X1 ONE Stop: 12/13/24 03:26 Last Admin: 12/13/24 04:01 Dose: 1 gm Documented By: LIZBETH Diphtheria/Tetanus/Acell Pertussis (Diphth,Pertuss(Acell),Tet Vac 0.5 Ml Syr- Adult) 0.5 ml IMi .ONCE ONE Stop: 12/13/24 03:26 Last Admin: 12/13/24 04:00 Dose: 0.5 ml Documented By: LIZBETH Ibuprofen (Ibuprofen Tab 400 Mg Tablet) 400 mg PO X1 ONE Stop: 12/13/24 04:53 Lidocaine HCl (Lidocaine Hcl 1% 20 Ml Vial) 20 ml INFL X1 ONE Stop: 12/13/24 03:26 Last Admin: 12/13/24 04:01 Dose: 20 ml Documented By: LIZBETH Lidocaine, Tdap, Bacitracin, Augmentin Consultations Consultation(s) initiated? (list below): No Diagnosis Wound Differential Diagnosis: laceration, abrasion, avulsion of skin and other (SI, HI, psychosis) Most likely diagnosis given after review of the tests above:: Self-inflicted injury Admission Indicated Admission indicated?: not indicated Explain why admission is indicated or not indicated:: No psychiatric service available at this facility. Admission Request Was there a request for admission?: No Disposition Plan Disposition Plan: other (specify) (Signed out to Dr. Schofield at 6 AM.) Discharge Plan Prescriptions/Referrals Prescriptions/Med Rec: No Action paroxetine HCl 20 mg tablet 20 mg PO QDAY prednisone 20 mg Tablet 20 mg PO QDAY sertraline [Zoloft] 25 mg Tablet 25 mg PO QDAY PRN (Reason: Anxiety) loratadine 10 mg Tablet 10 mg PO QDAY acetaminophen-codeine 300-30 mg tablet 2 tab PO Q8H MDD 6 PRN (Reason: pain) Qty: 20 0RF vwplcrludh-cfmsviaucgkor-shub [Fioricet] 50-300-40 mg capsule 1 cap PO Q6H PRN (Reason: headache) Qty: 30 0RF ondansetron 4 mg tablet,disintegrating 4 mg PO Q6H PRN (Reason: nausea and vomiting) Qty: 10 0RF ondansetron 4 mg tablet,disintegrating 4 mg PO Q6H PRN (Reason: nausea and vomiting) Qty: 10 0RF gasfmeqbqx-wtrtckpoandcr-zysc [Fioricet] 50-300-40 mg capsule 1 cap PO Q6H PRN (Reason: headache) Qty: 20 0RF Referrals: Casey RUSSELL)Chanelle FNP [Primary Care Provider] - In 1 week Problem List Clinical Impression: Self-inflicted injury, Laceration of left forearm Patient/Caregiver Discharge Instructions Print Language: Albanian
[2024-12-13 03:45] VITALS: BP 159/100; PULSE 78; RESP 18; TEMP 37.4; O2SAT 99
[2024-12-13] MEDS: AMOXICILLIN/POT CLAV 875 TABLET 1 TAB PO (04:00)
[2024-12-13] MEDS: DIPHTH,PERTUSS(ACELL),TET VAC 0.5 ML SYR- ADULT IMi (04:00)
[2024-12-13] MEDS: BACITRACIN OINT 1 GM PACKET TOP (04:01)
[2024-12-13] MEDS: LIDOCAINE HCL 1% 20 ML VIAL INFL (04:01)
[2024-12-13 05:08] LABS: Amphetamine/Methamp Scrn,U Negative (Negative); Barbiturate Screen,Urine Negative (Negative); Benzodiazepines Screen,Urine Negative (Negative); Benzoylecgonine Screen, Ur Negative (Negative); Fentanyl Screen,Urine Negative (Negative); Opiate Screen,Urine Negative (Negative); THC Screen,Urine Negative (Negative)
[2024-12-13] MEDS: ACETAMINOPHEN 325 MG TABLET 650 MG PO (05:19)
[2024-12-13] MEDS: IBUPROFEN TAB 400 MG TABLET PO (05:19)
[2024-12-13 05:47] LABS: Basophils # (Auto) 0.1 Thou/mm3 (0.0-0.2); Basophils % (Auto) 1 % (0-2.5); Eosinophils # (Auto) 0.1 Thou/mm3 (0.0-0.5); Eosinophils % (Auto) 1 % (0-10); Hematocrit 32.0 % (36.0-46.0); Hemoglobin 10.0 g/dL (12.0-16.0); Immature Granulocytes Auto 0.01 Thou/mm3 (0.00-0.00); Lymphocytes # (Auto) 1.8 Thou/mm3 (1.0-4.8); Lymphocytes % (Auto) 21 % (10-50); Mean Corpuscular HGB Conc 31.3 g/dl (31.0-37.0); Mean Corpuscular Hemoglobin 25.3 pg (25.0-35.0); Mean Corpuscular Volume 81 fL (80-100); Monocytes # (Auto) 0.5 Thou/mm3 (0.0-0.8); Monocytes % (Auto) 5 % (0-12); Neutrophils # (Auto) 6.1 Thou/mm3 (1.8-7.7); Neutrophils % (Auto) 72 % (37-80); Nucleated Red Blood Cell # 0.00 Thou/mm3 (0.00-0.00); Nucleated Red Blood Cell % 0 /100 WBC (0); Platelet Count 260 Thou/mm3 (140-440); RDW Standard Deviation 43.9 fL (36.4-46.3); Red Blood Count 3.95 Miln/mm3 (4.00-5.20); White Blood Count 8.5 Thou/mm3 (3.6-11.0)
[2024-12-13 06:25] LABS: Acetaminophen < 2.0 mcg/mL (10.0-20.0); Alanine Aminotransferase 10 U/L (10-49); Albumin, Serum 4.4 gm/dL (3.5-5.0); Albumin/Globulin Ratio 1.6 (1.2-2.2); Alcohol, Blood Medical < 3.0 mg/dL (0-10.0); Alkaline Phosphatase 91 U/L (46-116); Anion Gap 9 (7-16); Aspartate Amino Transferase 15 U/L (0-34); BUN/Creatinine Ratio 12 Ratio (12-20); Bilirubin,Direct < 0.1 mg/dL (0.0-0.3); Bilirubin,Total 0.3 mg/dL (0.3-1.2); Blood Urea Nitrogen 7 mg/dL (9-23); Calcium 11.0 mg/dL (8.3-10.6); Calcium (Corrected) 11.0 mg/dL (8.5-10.1); Carbon Dioxide 24.0 mMol/L (20.0-31.0); Chloride 108 mMol/L (98-107); Creatinine (Component) 0.6 mg/dL (0.6-1.3); Estimated Creatinine Clearance 125.6 mL/min (>60); Globulin 2.7 gm/dL (2.3-3.5); Glucose 95 mg/dL (74-106); Magnesium 1.7 mg/dL (1.6-2.6); Osmolality,Calculated 279 (275-295); Potassium 4.0 mMol/L (3.4-5.1); Sodium 141 mMol/L (136-145); Thyroid Stimulating Hormone 0.55 uIU/mL (0.55-4.78); Total Protein 7.1 gm/dL (5.7-8.2); eGFR > 60 See Note
[2024-12-13 06:33] LABS: HCG,Qualitative Serum Negative
[2024-12-13 07:28] VITALS: BP 146/84; PULSE 116; RESP 18; TEMP 36.7; O2SAT 98
--- NOTE | 2024-12-13 08:13 | EDNOTE_ITS ---
Emergency Room Addendum Addendum Narrative: 0600: Care assumed from Dr. Calhoun, the previous shift emergency physician. Past medical, surgical, social and family history reviewed. Vitals and home medications reviewed. I will assume the care of the patient at this time, pending medical clearance for mental health evaluation. Please refer to the emergency department record for history and examination from initial visit.?The following addendum documentation note is intended to reflect any pending information, findings, or radiology results not included in the patient?s initial chart. Patient is medically cleared for mental health evaluation. 1345: research worker encyclopedia has met with and evaluated the patient in the ED. States the patient had an appointment scheduled at 4PM today with Isaiah Frank. Patient has remained stable through ED course, will DC home.
[2024-12-13 11:02] VITALS: BP 139/80; PULSE 92; RESP 17; TEMP 36.9; O2SAT 98
[2024-12-13 14:01] VITALS: PULSE 98; RESP 16; TEMP 36.6; O2SAT 100
--- NOTE | 2024-12-13 14:08 | PC.CC ---
1327-Pt is a 24 yo female who entered the ER requesting a medical attention due to cutting her left forearm as a form of self harm, on 12/13/24. ASW-Julia Bingham met with patient [id number] to complete assessment. ASW introduced self, role, and reason for assessment. ASW disclosed limits of confidentiality as well. Patient appeared alert and oriented to self, place, and situation. Patient was pleasant; his mood appeared scared and remorseful. Her behavior appeared calm. Patient?s thought process was linear and organized. No signs of delusions, paranoid or AVH. 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 Pt admitted to prior h/o self-harm such as cutting and stated the last time she cut her wrist was about a year ago, but later changed the date to May 2024. Pt reported that she is going to school and that the courses are very competitive to get into. Pt reported that she was not able to get into a course that she had been waiting to get into and that particular course is only offered once a year. Pt stated that triggered anger and sadness. Later that evening, pt reported she was on social media, was alone, and her thoughts were getting the best of her. Pt reported she started to feel worthless and not amounting to anything, so she decided to cut herself with an eye brow nathen. Pt reported that after she cut herself, she reallized that it was too deep, and it was just too late. Pt reported she immediately regretted what she did, called her boyfriend to inform him of what she did, and drove herself to the emergency room. Pt denies SI/HI, denies AVH, and denies being diagnosed with a mental health disorder. Pt reports she has never seen a therapist or has been involved with therapy. Pt reports this is the first time she had ever been in the hospital and reported she is scared. Pt reports that although she is not suicidal she reports she has reason to live as she wants to be successful in her life, wants to make her family proud, and wants to live for her family. Pt reports the supports in her life are is her mother and boyfriend (in a 6 month relationship). Pt denies substance use/abuse. Pt states she is ready to make changes in her life and reports this was a wake up call for her. ASW asked pt if she is willing to safety plan v. a hold. Pt stated she is willing to safety plan. ASW explained that the safety plan would include a family member providing at minimum of 72 hours supervision, removal of all sharps and medications from her room and removal of access to sharps and medications, as well as an immediate appointment to a mental health provider. After discussion with the pt, along with DIXON Baker, the pt agreed to call her mother to include her in the safety plan. Pt was hesitant as she reported she does not want her mother to worry about her and would rather have her boyfriend as part of the safety plan. However, pt later agreed to call her mother as part of the safety plan. The pt, ASW and assigned RN witnessed the pt calling the mother and explaining to her what happened. The safety plan was explained to the pts mother and she agreed to the plan, as well as the pt. ASW contacted [facility] and the pt was scheduled to see a MH provider today at 4pm, located in [place]. ASW informed ER provider and he agreed to the plan. Pt is no longer on a 179 Hold and Mental health evaluation is completed.
== END 2024-12-13 14:02 | disposition home or self-care (01) ==
PROVIDERS: Emergency Medicine; Emergency Provider Family Medicine; PCP Nurse Practitioner Primary Care
DX: S51.812A Laceration without foreign body of left forearm, initial encounter (principal); X78.8XXA Intentional self-harm by other sharp object, initial encounter; Z23 Encounter for immunization
CPT/HCPCS: 12004; 36415; 80053; 80307; 80320; 80329; 82248; 83735; 84443; 84703; 85025; 90471; 90715; 96127; 99284; J3490; A9270; G0480